=== PATIENT | male | born 1990 | race Caucasian/White ===

== ENCOUNTER 2024-08-24 10:31 | Outpatient (OUT) | payer OTHER, SELFPAY ==
[2024-08-25 10:10] LABS: Uric Acid, Urine 8.6 mg/dL (Not Estab.)
[2024-08-31 18:07] LABS: Summary Report (Summary) FINAL (.)
== END 2024-08-24 10:32 | disposition home or self-care (01) ==
LOC: LAB 10:36
PROVIDERS: PCP Nurse Practitioner Family; Visit Provider Nurse Practitioner Family
DX: Z79.899 Other long term (current) drug therapy (principal)
CPT/HCPCS: 80326; 80331; 80334; 80337; 80338; 80341; 80344; 80347; 80348; 80353; 80354; 80355; 80357; 80358; 80359; 80360; 80361; 80364; 80365; 80366; 80367; 80368; 80370; 80371; 80372; 80373; 80377; 82570; 83992; 84560